=== PATIENT | female | born 1985 ===

== ENCOUNTER 2023-10-23 09:24 | Emergency (ER) | payer OTHER ==
[2023-10-23] MEDS ORDERED: CEPHALEXIN 500 MG CAP ONE (12:33)
[2023-10-23] MEDS ORDERED: BACITRACIN OINT 1 EACH PACKET TOPICAL ONE (12:33)
== END 2023-10-23 12:52 | disposition home or self-care (01) ==
LOC: EC 09:24
DX: R21 Rash and other nonspecific skin eruption (principal)
CPT/HCPCS: 99282

== ENCOUNTER 2023-10-24 15:32 | Emergency (ER) | payer OTHER ==
[2023-10-24] MEDS ORDERED: predniSONE 20 MG TAB ONE (17:02)
[2023-10-24] MEDS ORDERED: diphenhydrAMINE 50 MG/ML 1 ML VIAL ONE (17:02)
== END 2023-10-24 19:16 | disposition home or self-care (01) ==
LOC: EC 15:32
DX: L01.00 Impetigo, unspecified (principal)
CPT/HCPCS: 99282